=== PATIENT | female | born 1995 | race Hispanic/Latino ===

== ENCOUNTER 2024-03-18 00:23 | Emergency (ER) | payer SELFPAY ==
[~2024-03-18] VITALS: Ht 157.5 cm; Wt 117.9 kg
[2024-03-18 00:46] LABS: APPEARANCE,URINE CLOUDY (CLEAR); BILIRUBIN,URINE NEGATIVE (NEGATIVE); COLOR,URINE YELLOW (YELLOW); GLUCOSE, URINE (UA) NEGATIVE (NEGATIVE); KETONES,URINE NEGATIVE (NEGATIVE); LEUKOCYTE ESTERASE ,URINE NEGATIVE Leu/uL (NEGATIVE); NITRATE,URINE NEGATIVE (NEGATIVE); PROTEIN,URINE 20 mg/dL (NEGATIVE)
[2024-03-18] MEDS: LIDOCAINE HCL 2% VISCOUS 15 ML UDCUP PO ONE (00:46)
[2024-03-18] MEDS: DICYCLOMINE HCL 10 MG/5 ML ML PO ONE (00:46)
[2024-03-18] MEDS: MAG/ALUM/SIMETH 30 ML UDCUP PO ONE (00:46)
[2024-03-18] MEDS: FAMOTIDINE 20MG VIAL IV STA (00:47)
[2024-03-18] MEDS: ondanSETRON 4MG INJ IVP STA (00:47)
[2024-03-18 00:48] LABS: ADD UA MICROSCOPIC YES
[2024-03-18 00:54] LABS: BASOPHILS # (AUTO) 0.04 K/uL (0.00-0.20); BASOPHILS % (AUTO) 0.3 % (0.0-5.0); EOSINOPHILS % (AUTO) 1.3 % (0.0-8.0); HEMATOCRIT 38.8 % (36-48); IMMATURE GRANULOCYTE ABSOLUTE 0.15 K/uL (0-1); LYMPHOCYTES # (AUTO) 2.5 K/uL (1.0-4.8); LYMPHOCYTES % (AUTO) 15.7 % (21.0-51.0); MEAN CORPUSCULAR HEMOGLOBIN 29.7 pg (27.0-33.0); MEAN CORPUSCULAR VOLUME 87.2 fL (79-99); MONOCYTES # (AUTO) 0.7 K/uL (0.1-1.0); MONOCYTES % (AUTO) 4.3 % (3.0-13.0); NEUTROPHILS # (AUTO) 12.2 K/uL (1.8-7.7); NEUTROPHILS % (AUTO) 77.4 % (40.0-77.0); PLATELET COUNT (AUTO) 289 K/uL (130-400); RED BLOOD CELL COUNT(AUTO) 4.45 MIL/uL (4.00-5.50); RED CELL DISTRIBUTION WIDTH 13.1 % (11.0-15.5); WHITE BLOOD COUNT (AUTO) 15.8 K/uL (4.8-10.8)
[2024-03-18 00:55] LABS: BACTERIA,URINE RARE /HPF (None Seen); MUCUS,URINE RARE LPF (None Seen); SQUAMOUS EPITHELIAL CELL,UR MANY /HPF (0-2)
[2024-03-18 00:57] LABS: CREATININE 0.8 mg/dL (0.5-1.0); POTASSIUM 3.4 mmol/L (3.5-5.1)
[2024-03-18 00:58] LABS: HCG,QUALITATIVE URINE NEGATIVE (NEGATIVE)
[2024-03-18 01:01] LABS: BILIRUBIN,DIRECT 0.1 mg/dL (0.0-0.3); BILIRUBIN,TOTAL 0.3 mg/dL (0.2-1.0); TOTAL PROTEIN, SERUM 6.6 g/dL (6.0-8.3)
[2024-03-18 01:46] VITALS: BP 165/78; PULSE 84; RESP 18; TEMP 97.5; O2SAT 99
[2024-03-18] MEDS ORDERED: ONDA-243 PO (01:46)
[2024-03-18] MEDS ORDERED: FAMO-136 PO (01:46)
== END 2024-03-18 01:55 | disposition home or self-care (01) ==
LOC: EDH 00:23
DX: K29.70 Gastritis, unspecified, without bleeding (principal); Z88.6 Allergy status to analgesic agent
CPT/HCPCS: 99284; 96374; 96375; 80076; 80048; 83690; 85025; 81001; 81025; 36415; J3490; J2405